=== PATIENT | female | born 1980 | race Caucasian/White ===

== ENCOUNTER 2020-02-01 20:59 | Emergency (ER) | payer OTHER ==
[~2020-02-01] VITALS: Ht 170.2 cm; Wt 70.3 kg
[2020-02-01 21:12] VITALS: Ht 170.2 cm; Wt 70.3 kg
[2020-02-01 23:43] VITALS: BP 130/74
== END 2020-02-01 23:30 | disposition home or self-care (01) ==
LOC: ED 20:59
DX: J01.90 Acute sinusitis, unspecified (principal); Z86.011 Personal history of benign neoplasm of the brain